=== PATIENT | male | born 1955 | race Caucasian/White ===

== ENCOUNTER 2021-02-10 08:41 | Emergency (ER) | payer OTHER, SELFPAY ==
[2021-02-10 08:43] VITALS: BP 155/76; PULSE 132; RESP 54; TEMP 28.7; O2SAT 66; BMI 52.0
[2021-02-10 08:50] VITALS: BP 155/76; PULSE 137; RESP 38; TEMP 36.1; O2SAT 56
--- NOTE | 2021-02-10 08:56 | ED.RN ---
DR. SHEFFIELD AT BEDSIDE WITH PT ON ARRIVAL TO ED. PT IN RESPIRATORY DISTRESS, AT BEDSIDE. DR. SHEFFIELD DISCUSSING WITH PT AND OPTIONS OF INTUBATION, OR BEING MADE COMFORTABLE. PT BEING PREPPED FOR INTUBATION WHILE WAITING FOR A DECISION. IV ESTABLISHED, PT PLACED ON 15L NON REBREATHER SATTING 72%. PT AND REPORT THAT PT DOES NOT WANT TO BE INTUBATED AND WANTS TO COMFORTABLY.
[2021-02-10 09:01] VITALS: O2SAT 77
[2021-02-10] MEDS: Morphine 4 MG/ML Syringe IV (09:05)
[2021-02-10] MEDS: Ondansetron 4 MG/2 ML Vial IV (09:05)
[2021-02-10] MEDS: LORazepam 2 MG/ML Syringe 1 MG IV (09:05)
--- NOTE | 2021-02-10 09:30 | EX.ED.DYSGE1 ---
HPI History of Present Illness Chief Complaint: Shortness of Breath Informant: patient, spouse/S.O. and EMS Narrative Narrative: 65-year-old male presenting to the emergency department with shortness of breath. Reportedly the patient developed Covid symptoms on 30 January. He tested positive at his primary care physician's office on 07 February. notes declining health. History of diabetes, hypertension, and obesity. He is [place]. He is unvaccinated. EMS was called to the residence and they found him to be hypoxemic and in respiratory distress and placed him on CPAP. [facility] Medical History CLL (chronic lymphocytic leukemia) Diabetes mellitus HTN (hypertension) Home Medications lisinopril 20 mg PO DAILY 01/20/13 [History Last Taken 10/20/13 06:30] acidophilus-pectin, citrus 1 ea PO BID #30 tab 10/20/13 [Rx Last Taken Unknown] dexamethasone 6 mg PO TID 02/10/21 [History Last Taken Unknown] glimepiride 2 mg PO BID 02/10/21 [History Last Taken Unknown] metformin 1,000 mg PO BID 02/10/21 [History Last Taken Unknown] Allergy/AdvReac Type Severity Reaction Status Date / Time hydromorphone HCl AdvReac Other Verified 10/17/13 09:29 [From Dilaudid] Social History (Updated 02/10/21 @ 09:[address] Neptali Espino DO) current gender identity: male Smoking Status: Never smoker substance use type: does not use ROS ROS ED Constitutional Constitutional ED: Reports fever(s); Denies chills or weight loss Eyes Eyes: Denies change in vision or diplopia ENT ENT ED: Denies ear pain, rhinorrhea or sore throat Cardiovascular Cardiovascular: Denies chest pain, orthopnea, palpitations or racing heartbeat Respiratory/Chest Respiratory/Chest: Reports cough, dyspnea and dyspnea on exertion; Denies orthopnea Gastrointestinal Gastrointestinal: Reports nausea; Denies abdominal pain, diarrhea or vomiting Genitourinary Genitourinary ED: Denies dysuria, hematuria or urinary frequency Musculoskeletal Musculoskeletal: Reports myalgias; Denies arthralgias Integumentary Denies abscess or rash Neurologic Neurologic: Reports headache(s); Denies weakness Psychiatric Psychiatric: Denies anxiety, depression, suicidal ideation or suicidal thoughts Endocrine Endocrinology: Denies polydipsia, polyphagia or polyuria Allergic/Immunologic Allergic/Immunologic ED: Denies mouth swelling, tongue swelling or urticaria EXAM Physical Exam Narrative Exam Narrative: 65-year-old male presenting in respiratory distress. Const Vital Signs: 02/10/21 08:43 02/10/21 08:50 02/10/21 09:01 Temperature 83.6 F L 96.9 F L Temperature Source Temporal Temporal Pulse Rate 132 H 137 H Respiratory Rate 54 H 38 H Respiratory Effort Short of Breath Labored Respiratory Depth Shallow Respiratory Pattern Irregular Blood Pressure 155/76 H 155/76 H Blood Pressure Mean 102 102 Pulse Ox 66 56 Oxygen Delivery Method CPAP Nasal Cannula Non-Rebreather Oxygen Flow Rate (L/min) 15 10 15 02/10/21 09:43 Temperature Temperature Source Pulse Rate 50 L Respiratory Rate 30 H Respiratory Effort Respiratory Depth Respiratory Pattern Blood Pressure Blood Pressure Mean Pulse Ox 47 Oxygen Delivery Method Nasal Cannula Oxygen Flow Rate (L/min) 3 Positive well nourished, well developed and obese General Appearance ED: well developed Nutritional Appearance: obese HEENT Reports normocephalic, head/scalp atraumatic, TM's clear and moist mucous membranes Negative for trauma Tympanic Membrane ED: Yes TM's clear Eyes PERRL and EOMs intact bilaterally Neck no lymphadenopathy, supple and no JVD Resp clear to auscultation bilaterally Resp Narrative: Significant increased work of breathing Cardio regular rate and no murmurs Rate: tachycardic GI normal to inspection, nondistended, normoactive bowel sounds and non-tender Palpation: soft Back/Spine no CVA tenderness and normal ROM Extremity normal to inspection General Extremety ED: Negative for edema General Extremity: Negative for edema Neuro oriented x3 and CN's II-XII intact bilaterally Sensorium / Orientation: alert Motor Exam: strength 5/5 throughout Psych mental status grossly normal Mood & Affect: Negative for depressed or tearful Skin no rashes or lesions noted and no wounds MDM MDM MDM Narrative Medical decision making narrative: I spoke with the and the patient together at the bedside. I informed them that he is extremely sick and would need to be intubated. We had a conversation about being comfort care and the risk benefits of being intubated including a high likelihood that he would not come off the ventilator given his body habitus and his illness. Patient and his made the informed decision with shared decision making with myself to be made DNR comfort care only. Patient received morphine and Zofran. Plan Examiner was called. Patient was pronounced at 0949 hours. Discharge Plan Triage Chief Complaint: Shortness of Breath ED Provider: Neptali Espino Dx/Rx/DC Orders Clinical Impression: COVID-19, Acute hypoxemic respiratory failure Prescriptions: No Action lisinopril 20 MG tablet 20 mg PO DAILY RF: 0 acidophilus-pectin, citrus 1 EACH tablet 1 ea PO BID Qty: 30 RF: 0 glimepiride 2 mg tablet 2 mg PO BID RF: 0 dexamethasone 2 mg tablet 6 mg PO TID RF: 0 metformin 1,000 mg tablet 1,000 mg PO BID RF: 0 Primary Care Provider: Ananth Rachel Referrals: Ananth Rachel DO [Primary Care Provider] - Disposition Disposition: Date/Time: 02/10/21 09:49
--- NOTE | 2021-02-10 09:41 | ED.RN ---
PT COMPLAINS OF BEING HOT, REQUESTS A FAN. COOL CLOTH APPLIED TO FOREHEAD, AND CHEST, ICE PACK PLACED BEHIND NECK. PT BED RECLINED TO POSITION OF COMFORT. FAN TURNED ON AND PLACED FACING PT. PT REPORTS INCREASED LEVEL OF COMFORT.
[2021-02-10 09:43] VITALS: PULSE 50; RESP 30; O2SAT 47
--- NOTE | 2021-02-10 09:49 | ED.RN ---
pt. heart rate on monitor 30. agnes curtis, and this nurse to bedside. dr. houston to visit. green prize packer at bedside.
--- NOTE | 2021-02-10 10:03 | ED.RN ---
0949: PT. ASYSTOLE ON MONITOR, NO PALP PULSE. DR. SHEFFIELD AT BEDSIDE. TOD 0949. FAMILY AT BEDSIDE
--- NOTE | 2021-02-10 10:09 | ED.RN ---
PT RECEIVED NO IV FLUIDS IN THE LAST HOUR OF LIFE
--- NOTE | 2021-02-10 11:06 | ED.RN ---
family left the bedside.
== END 2021-02-10 09:49 ==
PROVIDERS: Emergency Provider Emergency Medicine; PCP Family Medicine
DX: U07.1 COVID-19 (principal); J96.01 Acute respiratory failure with hypoxia; E66.9 Obesity, unspecified; E11.9 Type 2 diabetes mellitus without complications; I10 Essential (primary) hypertension; Z79.52 Long term (current) use of systemic steroids; Z79.84 Long term (current) use of oral hypoglycemic drugs; Z79.899 Other long term (current) drug therapy
CPT/HCPCS: 96374; 96375; 96376; 99284; J2405